=== PATIENT | male | born 1990 | race Two or more races ===

== ENCOUNTER 2021-12-13 01:09 | Emergency (ER) | payer OTHER ==
--- NOTE | 2021-12-13 01:55 | ED Physician Documentation ---
PD HPI ABD PAIN - Stated complaint Stated Complaint: ABD PX - Chief complaint Chief Complaint: Abd Pain - History obtained from History obtained from: Patient - Additional information Additional information: The patient comes to the emergency department with chief complaint of abdominal pain for the last 24 hours. He states he has been feeling up in his periumbilical area and it is a sharp pain like somebody is poking him. He also feels a an odd feeling in his right abdomen and flank which does not feel like a pain but more like a pressure sensation or like "something is there". He states it is worse if he lays on that side and that he almost feels as though his skin is numb. He does not feel that sensation on the left. Patient denies any worsening of the pain with heavy lifting or movement. He denies any dysuria, diarrhea, nausea, or vomiting. He states that he sometimes feels constipated but feels like this is actually been better recently. The patient does note that he is at has a sense of his heart pounding and that this seems worse when the pain comes on. He feels the throbbing sensation in his umbilical area and almost feels like a vibrating sensation. His only medical history is that he has been told previously that he may have some degree of high blood pressure, but he has never really followed up on this. The patient is morbidly obese and states he is going to work on a weight loss plan. No other complaints at this time. Review of Systems Ten Systems: 10 systems reviewed and negative Constitutional: reports: Reviewed and negative Eyes: reports: Reviewed and negative Ears: reports: Reviewed and negative Nose: reports: Reviewed and negative Throat: reports: Reviewed and negative Cardiac: reports: Reviewed and negative Respiratory: reports: Reviewed and negative GI: reports: Abdominal Pain : reports: Reviewed and negative Skin: reports: Reviewed and negative Musculoskeletal: reports: Reviewed and negative Neurologic: reports: Reviewed and negative Psychiatric: reports: Reviewed and negative Endocrine: reports: Reviewed and negative Immunocompromised: reports: Reviewed and negative PD PAST MEDICAL HISTORY - Past Medical History Past Medical History: Yes Cardiovascular: None Respiratory: None Endocrine/Autoimmune: None Psych: None Musculoskeletal: None - Past Surgical History Past Surgical History: No - Present Medications Home Medications: Ambulatory Orders Medication Instructions Recorded Confirmed Metoprolol Tartrate [Lopressor] 25 mg PO BID #60 tablet 12/13/21 - Allergies Allergies/Adverse Reactions: Allergies Allergy/AdvReac Type Severity Reaction Status Date / Time amoxicillin [Amoxicillin] Allergy Unknown Rash Verified 12/13/21 01:17 - Social History Does the pt smoke?: No Smoking Status: Never smoker Does the pt drink ETOH?: No Does the pt have substance abuse?: No - Immunizations Immunizations are current?: Yes - POLST Patient has POLST: No PD ED PE NORMAL - Vitals Vital signs reviewed: Yes - General General: Alert and oriented X 3, No acute distress, Well developed/nourished - HEENT HEENT: Atraumatic, PERRL, EOMI, Moist mucous membranes - Neck Neck: Supple, no meningeal sign - Cardiac Cardiac: RRR, No murmur, Strong equal pulses - Respiratory Respiratory: No respiratory distress, Clear bilaterally - Abdomen Abdomen: Soft, Other (Markedly obese abdomen. Minimal abdominal tenderness, noted only in the left lower quadrant. Palpation of right mid abdomen reproduces the feeling that "something is there". No rebound or guarding. No palpable umbilical hernia.) - Derm Derm: Warm and dry - Extremities Extremities: No deformity - Neuro Neuro: Alert and oriented X 3 - Psych Psych: Normal mood, Normal affect Results - Vitals Vitals: Vital Signs - 24 hr 12/13/21 12/13/21 01:17 02:33 Temperature 36.4 C L 36.4 C L Heart Rate 91 82 Respiratory 17 16 Rate Blood Pressure 193/86 H 160/97 H O2 Saturation 99 100 Oxygen O2 Source Room air - Labs Labs: Laboratory Tests 12/13/21 12/13/21 01:57 01:57 WBC 8.3 RBC 5.28 Hgb 15.5 Hct 45.8 MCV 86.7 MCH 29.4 MCHC 33.8 RDW 12.4 Plt Count 235 MPV 9.4 Neut # (Auto) 4.8 Lymph # (Auto) 2.4 [place] # (Auto) 0.9 Eos # (Auto) 0.2 Baso # (Auto) 0.1 Absolute Nucleated RBC 0.00 Nucleated RBC % 0.0 Sodium 140 Potassium 3.8 Chloride 102 Carbon Dioxide 28 Anion Gap 10.0 BUN 12 Creatinine 1.0 Estimated GFR (MDRD) 87 L Glucose 98 Calcium 9.4 Total Bilirubin 0.7 AST 23 ALT 25 Alkaline Phosphatase 48 Total Protein 7.4 Albumin 4.2 Globulin 3.2 Albumin/Globulin Ratio 1.3 Lipase 44 - Rads (name of study) Ct abd/pelvis Radiology: Final report received, EMP read indepedently, See rad report (Negative) PD MEDICAL DECISION MAKING - ED course Complexity details: reviewed old records, reviewed results, re-evaluated patient, considered differential, d/w patient ED course: The patient was worked up with labs and CT of the abdomen pelvis, All of which were unremarkable. He was found to have quite a high blood pressure in the emergency department of 193/86, And I was concerned that he had most likely been running high and perhaps in this range for an extended period of time. I discussed with the patient that he should be on an antihypertensive, at least for now, until he can see his primary doctor to determine The best long-term plan. I have also emphasized to him that he should definitely continue his plans to work on weight loss, as this is most likely affecting both his abdominal pain and his blood pressure. I am not sure what has caused the sen sation of sharp pain in the periumbilical area and a fullness in his right abdomen. There is no evidence of a hernia, although it is possible that he is developing some soft tissue strain at the umbilicus which will lead to a hernia. I have considered abdominal aortic pathology as a possible cause for the patient's symptoms, but the aorta appears normal on CT. We have discussed the importance of blood pressure control and the usual indications for return. Departure - Departure Disposition: 01 Home, Self Care Clinical Impression: Abdominal pain Qualifiers: Abdominal location: periumbilical Qualified Code(s): R10.33 - Periumbilical pain High blood pressure Qualifiers: Hypertension type: unspecified Qualified Code(s): I10 - Essential (primary) hypertension Condition: Stable Instructions: ED Hypertension New Begin Tx, ED Abdominal Pain Unkn Cause Male Prescriptions: Metoprolol Tartrate [Lopressor] 25 mg PO BID #60 tablet Comments: Your labs and CT scan look good. There is no evidence of a hernia, infection, or bulge in the large artery that runs through your abdomen, the aorta. It is not clear what is causing your symptoms. Most likely, it is coming from the inside of the wall of the abdomen, and could be either a strain of your soft tissue, or a developing tear in your umbilicus which could lead to a hernia. Most likely, your symptoms will resolve on their own, given time. It is not clear why you feel the fullness on the right side of your abdomen, but your abdominal organs and structures look good. You do have a very high blood pressure here in the emergency department, and if you have already been told that you have some high blood pressure readings, it is of concern that you are chronically running high. Over time, this can cause damage to your cardiovascular system as well as your kidneys. It could also explain the sense of heart pounding that you are feeling. A medication has been prescribed for your blood pressure and you should start this in the morning. Please follow-up with your primary care physician to determine whether this is the best long-term plan for you. Please also continue your plans to pursue weight loss, as your weight is probably an issue for both the blood pressure and the abdominal strain. Discharge Date/Time: 12/13/21 02:41
[2021-12-13 02:00] LABS: BASOPHILS # (AUTO) 0.1 10^3/uL (0.0-0.1); BASOPHILS % (AUTO) 0.6 %; EOSINOPHILS # (AUTO) 0.2 10^3/uL (0.0-0.7); EOSINOPHILS % (AUTO) 2.3 %; HCT - HEMATOCRIT 45.8 % (42.0-52.0); HGB - HEMOGLOBIN 15.5 g/dL (14.0-18.0); LYMPHOCYTES # (AUTO) 2.4 10^3/uL (1.5-3.5); LYMPHOCYTES % (AUTO) 28.8 %; MEAN CORPUSCULAR HEMOGLOBIN 29.4 pg (27.0-31.0); MEAN CORPUSCULAR HGB CONC 33.8 g/dL (32.0-36.0); MEAN CORPUSCULAR VOLUME 86.7 fL (80.0-94.0); MEAN PLATELET VOLUME 9.4 fL (7.4-11.4); MONOCYTES # (AUTO) 0.9 10^3/uL (0.0-1.0); MONOCYTES % (AUTO) 10.6 %; NEUTROPHILS # (AUTO) 4.8 10^3/uL (1.5-6.6); NEUTROPHILS % (AUTO) 57.6 %; PLT - PLATELET COUNT 235 10^3/uL (130-450); RED BLOOD COUNT 5.28 10^6/uL (4.70-6.10); RED CELL DISTRIBUTION WIDTH 12.4 % (12.0-15.0); WHITE BLOOD COUNT 8.3 x10^3/uL (4.8-10.8)
[2021-12-13 02:14] LABS: ALBUMIN 4.2 g/dL (3.2-5.5); ALBUMIN/GLOBULIN RATIO 1.3 (1.0-2.2); BILIRUBIN,TOTAL 0.7 mg/dL (0.2-1.0); CALCIUM 9.4 mg/dL (8.5-10.3); POTASSIUM 3.8 mmol/L (3.5-5.0); TOTAL PROTEIN 7.4 g/dL (6.7-8.2)
[2021-12-13 02:34] VITALS: BP 160/97
--- NOTE | 2021-12-13 07:51 | CT Report ---
PROCEDURE: Abdomen/Pelvis WO INDICATIONS: rico-umbilical and R flank pain TECHNIQUE: Noncontrast 5 mm thick sections acquired from the diaphragms to the symphysis. 5 mm coronal and sagi ttal reformats were then performed. For radiation dose reduction, the following was used: automated exposure control, adjustment of mA and/or kV according to patient size. COMPARISON: None. FINDINGS: Image quality: Excellent. ABDOMEN: Lung bases: Lung bases are clear. Heart size is normal. Solid organs: Liver and spleen are normal in size. Gallbladder is unremarkable in CT appearance. P ancreas is normal in contours. No peripancreatic inflammation. No adrenal nodules. Kidneys are norm al in size, without hydronephrosis or nephrolithiasis. Bilateral ureters are normal in course and ca liber. No ureteral stones. No perinephric or periureteral stranding. Peritoneum and bowel: Unenhanced bowel loops demonstrate normal wall thickness and caliber. No free fluid or air. Normal appendix. Nodes and vessels: No retroperitoneal or mesenteric adenopathy by size criteria. Aorta and inferior vena cava are normal in caliber. Miscellaneous: Small fat-containing umbilical hernia without acute inflammation. PELVIS: Genitourinary: Urinary bladder wall thickness is normal. Miscellaneous: No inguinal hernias or adenopathy. Bones: No suspicious bony lesions. No acute vertebral body compression fractures. Moderate degenera tive endplate changes at L4-5 with mild central canal stenosis. IMPRESSION: CT abdomen and pelvis without acute abnormalities. Specifically, no evidence for urolithiasis or obst ructive uropathy. No evidence for recently passed stone. Normal appendix. No significant discrepancy with initial interpretation by overnight radiologist. Reviewed by: Adair Tineo MD on 12/13/2021 7:50 AM PDT Approved by: Adair Tineo MD on 12/13/2021 7:50 AM PDT Station ID: [id number]
== END 2021-12-13 02:41 | disposition home or self-care (01) ==
LOC: ED 01:09
DX: R10.33 Periumbilical pain (principal); I10 Essential (primary) hypertension
CPT/HCPCS: 36415; 80053; 83690; 85025; 99282; 99284

== ENCOUNTER 2023-10-26 15:55 | Outpatient (CLI) | payer OTHER ==
--- NOTE | 2023-10-26 16:23 | Sleep Patient Instructions ---
Sleep Center Visit Summary - Patient Visit Information Reason for Visit: Initial consult for evaluation of sleep disordered breathing and other sleep issues. - Patient Instructions Instructions Attached: Sleep Study Home Monitor, Sleep Study Additional Instructions: You will be completing a sleep study, either an in-lab polysomnography (PSG) or home sleep study (HST). You will follow-up in the sleep care office after the sleep study is completed to hear the results and talk about therapy, if needed. You will be called by our office staff to schedule this appointment, but you may contact us with any questions. - Clinic Information Contact: [facility] [address] [place] [id number] [email or web address] T: [phone]
--- NOTE | 2023-10-26 16:30 | SLEEP CARE CONSULTATION ---
Information from patient questionnaire entered by Nithya Quinn. I have reviewed and concur with the information entered by Nithya Quinn. This document represents the service I personally performed and the decisions made by me, Valerie Hammond ARNP. History of Present Illness Service Date and Time: 10/26/2023 1555 Reason for Visit: New patient Chief Complaint: reports: Unrefreshed sleep, Excessive daytime sleepiness, Fatigue Date of Onset: 1-2YRS MAYBE LONGER Usual bedtime: 12-1AM Time it takes to fall asleep: 20-30MINS Snores at night: Yes Observed to quit breathing while asleep: No Sleeps alone due to snoring: No Number of times waking at night: NOT OFTEN EVERY ONCE IN A WHILE Reasons for waking at night: reports: Gasping for air, Other (FAST HEART RATE). denies: Choking, Snoring Toss, Turn, or Twitch while sleeping: Yes Recalls having dreams: Yes Usually gets out of bed at: [id number]; weekends about an hour later Feels refreshed in the morning: No Morning headache: Yes (5 days a month, resolve in 30 mins after waking up) Sleepy or fatigued during the day: Yes Ever fallen asleep while driving: Yes (drowsy driving mostly; couple "almost incidences") Takes day naps: No Dreams during day naps: No Prior sleep studies: No Additional HPI information: I had the pleasure of seeing ELISABET GOMEZ today regarding the possibility of him having a sleep disorder. His current complaints are unrefreshed sleep, excessive daytime sleepiness and fatigue. He says it seems like "nothing happens" when he sleeps. He wakes up feeling tired and is tired "all the time". He has been told he snores in the past a couple of times. He is currently sleeping alone and does not know if he is currently snoring. He has never been told he stops breathing. He says he has occasionally had dreams where he feels he cannot breathe. He has felt short of air when awakening sometimes, just a feeling of "not being able to breathe". He states he feels he has trouble with concentration during the day, especially when he is tired. He says both of his parents are on machines for sleep apnea. He was told by his primary provider that he is on lower end of scale for insulin resistance and was put on Metformin. 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 Patient is Single and lives in [place]. Have you smoked in the past 12 months: No Alcohol use: No Caffeine use: Yes Caffeine amount and frequency: 12 OZ COFFEE 2-3X DAY Family History Family history of sleep disordered breathing: Yes Family Hx Sleep Apnea: Mother: Sleep apnea - Treated, Father: Sleep apnea - Treated, Sibling: Snoring Allergies and Home Medications Known drug allergies: Yes ( LISTED) Drug allergies reviewed: Yes Home medication list reviewed: Yes (as listed) Allergy and home medication list: Allergies amoxicillin [Amoxicillin] Allergy (Unknown, Verified 10/24/23 14:35) Rash unsure of reaction states "its just always been in my record i guess". Home Medications Medication Instructions Recorded Confirmed Last Taken Type Metoprolol Tartrate [Lopressor] 25 mg PO BID #60 tablet 12/13/21 10/26/23 Unknown Rx Losartan [Cozaar] See Rx Instructions .ROUTE .COMPLEX 10/26/23 10/26/23 Unknown History Multivitamin See Rx Instructions .ROUTE .COMPLEX 10/26/23 10/26/23 Unknown History Pyatt-3/Dha/Epa/Fish Oil [Fish Oil See Rx Instructions .ROUTE .COMPLEX 10/26/23 10/26/23 Unknown History 1,000 mg Softgel] metFORMIN [Glucophage] See Rx Instructions .ROUTE .COMPLEX 10/26/23 10/26/23 Unknown History Review of Systems Weight loss over past 5 years: 10 in last year Cardiovascular: reports: high blood pressure Gastrointestinal: reports: heartburn Neurological: denies: headaches Psychiatric: denies: anxiety, depression Ear/Nose/Throat: reports: nasal congestion, wisdom teeth removed. denies: tonsillectomy Musculoskeletal: reports: neck pain, back pain Immunologic: reports: sneezing, allergies to food or environment Physical Exam Vital signs obtained and entered by: NITHYA Maria MA Blood Pressure: 140/81 (LEFT ARM) Cuff size: long Heart Rate: 82 O2 Saturation: 98 Height: 6 ft 2 in Weight: 313 lb 6.4 oz Body Mass Index: 40.2 BMI Classification: Morbidly Obese Neck circumference: 18.75 Mouth and throat: narrow oropharynx Soft palate: long Hard palate: normal Uvula: normal Uvula visualization: 25% Mallampati Class III Tongue: enlarged in size with teeth rose on lateral edges Tonsils: 1+ Neck: normal w/o lymphadenopathy or thyromegaly Heart: regular rate and rhythm Lungs: clear bilaterally Impression and Plan 1. Suspected Obstructive Sleep Apnea-Hypopnea Syndrome, as suggested by a history of irregular snoring, gasping or choking in sleep, morning headache, unrefreshed sleep, cognitive impairment, and excessive daytime sleepiness. Narrow oropharynx and obesity are common predisposing factors for obstructive sleep apnea-hypopnea syndrome. I recommend proceeding to polysomnography to confirm the diagnosis and to assess severity. If the patient has significant sleep disordered breathing, a manual CPAP titration study will also be performed to find the optimal treatment pressure. I informed the patient of what the sleep studies involve and after some discussion, obtained agreement to proceed. The pathophysiology of obstructive sleep apnea-hypopnea syndrome was discussed with the patient and health risks of cardiovascular and cerebrovascular disease if not treated. Risks of drowsy driving discussed in detail and patient advised to avoid long distance driving and to picker/puller at the first sign of drowsiness. Patient agreed to plan. * Schedule polysomnography +- manual CPAP titration study and return in 1-2 weeks after the study to discuss result and initiate therapy. * Avoid long distance driving or driving when feeling sleepy. * Avoid alcohol, sedative and muscle relaxant around bedtime. * Attempt to lose weight. * Review instructions provided by trained office staff on how to prepare for the sleep study. * Return for follow-up after sleep study completed. Counseling Topics: Weight loss health impact Follow up with Sleep Care in: other (after sleep study) Plan: PSG/HST Visit Type: In Office Time Spent with Patient (minutes): 30 Provider Statement: I spent 100% of the Face to Face Visit with the patient with greater than 50% spent counseling the patient and coordination of care.
[2023-10-26 16:43] VITALS: BP 140/81; O2SAT 98
== END 2023-10-26 15:56 | disposition home or self-care (01) ==
LOC: SC 15:55
PROVIDERS: ATTEND Nurse Practitioner Family
DX: G47.10 Hypersomnia, unspecified (principal); R06.83 Snoring; G47.8 Other sleep disorders; R51.9 Headache, unspecified; R41.89 Other symptoms and signs involving cognitive functions and awareness; E66.01 Morbid (severe) obesity due to excess calories; Z68.41 Body mass index [BMI] 40.0-44.9, adult
CPT/HCPCS: 99203; 99212

== ENCOUNTER 2023-12-14 09:34 | Outpatient (CLI) | payer OTHER ==
--- NOTE | 2023-12-14 09:54 | Sleep Patient Instructions ---
Sleep Center Visit Summary - Patient Visit Information Reason for Visit: Sleep study follow-up - Patient Instructions Instructions Attached: CPAP Additional Instructions: You are being started on CPAP therapy with pressure setting at 4-15 cmH2O. You will need to call the sleep care office to set up your follow up once you have your CPAP machine to check compliance and response to therapy at that time. You may call the office with any concerns about pressure feeling too low or too much for adjustment, if needed. You should contact DME supplier for any questions or concerns about mask or equipment. Please call office to schedule a follow up appointment in the sleep care office one month after obtaining new device. - Clinic Information Contact: [facility] [address] [place] [email or web address] T: [phone]
--- NOTE | 2023-12-14 09:57 | SLEEP CARE CONSULTATION ---
Information from patient questionnaire entered by Nithya Quinn. I have reviewed and concur with the information entered by Nithya Quinn. This document represents the service I personally performed and the decisions made by me, Valerie Hammond ARNP. History of Present Illness Service Date and Time: 12/14/2023 0934 Initial [place] Sleepiness Scale score: 15 (10/11/23) Current [place] Sleepiness Scale score: 12 (12/14/23) Additional HPI information: ELISABET GOMEZ returns for follow up and results of the recently performed home sleep study. The sleep study showed mild obstructive sleep apnea with an average AHI of 5.4 and anne oxygen saturation of 85%. I explained the pathophysiology behind obstructive sleep apnea. We then spent quite a bit of time discussing different treatment options. For mild obstructive sleep apnea, surgery and oral appliance are alternatives to nasal CPAP therapy but in moderate or severe cases, nasal CPAP is the most effective and reliable treatment. Because apnea is primarily in supine position, then positional management therapy could be effective. Methods discussed such as positioning with pillows, using a T-shirt with tennis balls in the back or commercial products that have a pillow format on back to prevent supine sleep. I reviewed the impact of weight changes on sleep apnea and strongly recommended losing weight. After some discussion, the patient opted to go with the nasal CPAP therapy. Nasal autoCPAP set at 4-15 cmH20 will be ordered with rationale explained. A manual titration study will be ordered if unable to find optimal pressure with office adjustments. I explained how CPAP machine works and what to expect when using the machine. Using CPAP every night in order to get used to it was emphasized. Patient advised to put CPAP mask on before getting into bed so as not to fall asleep without CPAP. To assist acclimation to CPAP use, it could also be used for a short time during day while reading or watching TV. The patient was instructed to call the CPAP supplier to discuss any mechanical problem that may occur. If the mask given is uncomfortable or is difficult to keep on through the night even with adjustment, contact the CPAP supplier as many will replace with another mask style if notified before 30 days. If snoring or perceives is not getting enough air or too much air from the machine, notify this office. Patient counseled not drink alcohol less than 4 hours before bedtime as it can increase snoring and apnea. Patient was cautioned about risks of drowsy driving until sleepiness symptoms resolve. Sleep Study - Results Type of Sleep Study: Home sleep study (COMPLETED 12/06/23) Prior sleep studies: No Polysomnography/Home Sleep Study results: Physician Impression: The quality of the study is good. The length of the study is adequate (> 240 minutes). Please also see the tabulated and graphic data. 1. Obstructive Sleep Apnea-Hypopnea (ICD-10 G47.33), mild, with an AHI of 5.4/hr and anne SaO2 of 85%. During the study, the patient had 0 apneas (0 obstructive, 0 central, 0 mixed) and 28 hypopneas. The longest episode lasted 69.5 seconds. The respiratory events occurred almost exclusively during supine sleep (supine AHI was 7.4 and non-supine, 0.65). 2. Hypoxemia (ICD-10 R09.02), mild, with the lowest oxygen saturation of 85 % and 38.8 minutes with SaO2 under 90%. Baseline oxygen saturation was normal (Average oxygen saturation was 93%). Allergies and Home Medications Known drug allergies: Yes (as listed) Drug allergies reviewed: Yes Home medication list reviewed: Yes (no changes) Allergy and home medication list: Allergies amoxicillin [Amoxicillin] Allergy (Unknown, Verified 12/13/23 09:18) Rash unsure of reaction states "its just always been in my record i guess". Review of Systems Review of systems same as previous: Yes (NO CHANGE) Physical Exam Vital signs obtained and entered by: NITHYA Maria MA Blood Pressure: 151/86 (LEFT ARM) Cuff size: long Heart Rate: 88 O2 Saturation: 98 Height: 6 ft 2 in Weight: 316 lb Body Mass Index: 40.6 BMI Classification: Morbidly Obese Impression and Plan 1. Obstructive Sleep Apnea-Hypopnea Syndrome, mild, with lowest oxygen saturation of 85%. Obviously this is the cause of the patients symptoms of unrefreshed sleep, and excessive daytime sleepiness. Positive pressure therapy could benefit hypertension and insulin resistance. As mentioned above, the patient will be started on nasal autoCPAP therapy with pressure set at 4-15 cmH2 O. A manual titration study will be completed if unable to find optimal treatment pressure with office adjustments. Compliance guidelines also reviewed. A copy of compliance guidelines will be given for reference at check out. Because the apnea is more severe supine, I instructed to avoid sleeping supine using pillow positioning until able to start CPAP use. 2. Obesity, unspecified. Currently patients BMI is 40.6. Obesity increases the risk of apnea, CPAP pressure requirements and overall health risks especially cardiovascular and diabetes. Thus patient is advised to lose weight. * Nasal auto CPAP therapy, pressure at 4-15 cm H2O. * Attempt to lose weight. * Avoid alcohol consumption near bedtime. * Avoid supine sleep until using CPAP. * The patient is again cautioned about driving until sleepiness completely resolves. * Return one month after CPAP obtained. I will assess response to therapy and compliance at that time. Counseling Topics: Sleeping position, Weight loss health impact Prescriptions: Auto CPAP Plan: Compliance followup Visit Type: In Office Time Spent with Patient (minutes): 20 Provider Statement: I spent 100% of the Face to Face Visit with the patient with greater than 50% spent counseling the patient and coordination of care.
[2023-12-14 10:01] VITALS: BP 151/86; O2SAT 98
== END 2023-12-14 09:35 | disposition home or self-care (01) ==
LOC: SC 09:34
PROVIDERS: ATTEND Nurse Practitioner Family
DX: G47.33 Obstructive sleep apnea (adult) (pediatric) (principal); E66.01 Morbid (severe) obesity due to excess calories; Z68.41 Body mass index [BMI] 40.0-44.9, adult
CPT/HCPCS: 99212; 99213

== ENCOUNTER 2024-02-01 13:49 | Outpatient (CLI) | payer OTHER ==
--- NOTE | 2024-02-01 14:22 | Sleep Patient Instructions ---
Sleep Center Visit Summary - Patient Visit Information Reason for Visit: First compliance follow-up - Patient Instructions Additional Instructions: You were here for follow up of CPAP therapy. You will be continued on CPAP therapy with pressure at 10-12 cmH2O. Please let us know if the pressure change is uncomfortable and we can make further adjustments of the pressure. You should follow up with sleep care in 1-2 months. You may contact us sooner for any questions or concerns. - Clinic Information Contact: [facility] [address] [place] [email or web address] T: [phone]
--- NOTE | 2024-02-01 14:25 | SLEEP CARE CONSULTATION ---
Information from patient questionnaire entered by Nithya Quinn. I have reviewed and concur with the information entered by Nithya Quinn. This document represents the service I personally performed and the decisions made by , Valerie Hammond ARNP. History of Present Illness Service Date and Time: 02/01/2024 1349 Previous diagnosis: Mild, Obstructive Sleep Apnea-Hypopnea Syndrome AHI: 5.4 (12/06/2023) Reason for follow up: first compliance Equipment type: CPAP (RESMED Airsense 11, S/U012/20/23) Equipment obtained from: Other ([facility]; getting supplies) Mask style: Nasal pillows Mask brand: Resmed (Airfit P10, large cushion) Backup mask available: No (will keep old mask when replaced) Last cushion change: 2 weeks Prior sleep studies: No Type of Sleep Study: Home sleep study (COMPLETED 12/06/23) HPI additional information: ELISABET GOMEZ was diagnosed to have mild, AHI 5.4, obstructive sleep apnea- hypopnea syndrome and returned today for CPAP therapy first compliance follow- up. Sleep Study - Results Type of Sleep Study: Home sleep study (COMPLETED 12/06/23) Prior sleep studies: No CPAP Compliance Data - Data Reviewed with Patient Average duration of nightly device use: 5 HRS 30 MINS Compliance rate %: 83 (12/20/23-01/18/24; days used) Current pressure setting (cmH2O): 4-15 (median 8, avg 10.7, max 12) Average residual AHI: 0.2 Central apnea: 0 Obstructive apnea: 0.1 Hypopnea: 0.1 Average large leak: 0.4 L/min Subjective Missed days of use due to: reports: mask issues, other (taking off mask during night) Patient concerns: reports: mask discomfort, air blowing in eyes. denies: aerophagia, mask leak noise, condensation in mask/hose, nasal congestion, dry mouth, nose, throat, epistaxis Observed to snore while using device: No Current pressure setting perceived as: too low (sometimes when first going to sleep) On therapy, patient: reports: sleeping better, awakening more refreshed, being more awake and alert during the day, more rested overall. denies: drowsiness while driving Initial [place] Sleepiness Scale score: 15 (10/11/23) Current [place] Sleepiness Scale score: 10 (02/01/24) Allergies and Home Medications Known drug allergies: Yes (as listed) Drug allergies reviewed: Yes Home medication list reviewed: Yes (Claritin 10 mg daily) Allergy and home medication list: Allergies amoxicillin [Amoxicillin] Allergy (Unknown, Verified 01/30/24 11:53) Rash unsure of reaction states "its just always been in my record i guess". Review of Systems Review of systems same as previous: Yes (NO CHANGE) Physical Exam Vital signs obtained and entered by: NITHYA Maria MA Blood Pressure: 161/91 (RIGHT ARM) Cuff size: long Heart Rate: 86 O2 Saturation: 97 Height: 6 ft 2 in Weight: 312 lb 6.4 oz Body Mass Index: 40.1 BMI Classification: Morbidly Obese Impression and Plan 1. Obstructive Sleep Apnea-Hypopnea Syndrome, mild, with good treatment compliance and good apnea control. On CPAP therapy, the patient has better sleep quality and is more rested overall. He has significant improvement of his sleep apnea and is noticing improvement when he is able to use it for longer nights. There are some nights where he has taken the mask off unknowingly and those mornings are little rougher. He does like the nasal pillows mask he is using but sometimes it does leak around the nasal pillows. He feels the pressure is a little low at the beginning of the night so I will increase his ramp starting pressure to 5 cmH2O. The patients pressure will be changed to autoCPAP 10-12 cmH20 to reflect pressure being used. Patient advised to contact me if pressure change is uncomfortable so that it can be adjusted. Goals for apnea control discussed. Patient's apnea severity and rationale for treatment to reduce apnea, improve sleep quality and reduce cardiovascular and cerebrovascular events was reviewed. I also reviewed the benefit of consistent device use of CPAP for hypertension, insulin resistance. 2. Obesity, unspecified. Currently patients BMI is 40.1. Obesity increases the risk of apnea, CPAP pressure requirements and overall health risks especially cardiovascular and diabetes. Thus patient is advised to lose weight. * Change auto CPAP pressure to 10-12 cmH2O * Notify me if snoring with mask or feeling that the pressure is too much or too little * Attempt to lose weight * Call this office if any problems using CPAP * Return for follow up in 1-2 months, or sooner if concerns arise Adjust device pressure to (cmH2O): 10-12 Counseling Topics: Spare mask, Weight loss health impact Follow up with Sleep Care in: 1-2 months Visit Type: In Office Time Spent with Patient (minutes): 20 Provider Statement: I spent 100% of the Face to Face Visit with the patient with greater than 50% spent counseling the patient and coordination of care.
[2024-02-01 14:27] VITALS: BP 161/91; O2SAT 97
== END 2024-02-01 13:50 | disposition home or self-care (01) ==
LOC: SC 13:49
PROVIDERS: ATTEND Nurse Practitioner Family
DX: G47.33 Obstructive sleep apnea (adult) (pediatric) (principal); E66.01 Morbid (severe) obesity due to excess calories; Z68.41 Body mass index [BMI] 40.0-44.9, adult
CPT/HCPCS: 99212; 99213

== ENCOUNTER 2024-03-28 13:45 | Outpatient (CLI) | payer OTHER ==
--- NOTE | 2024-03-28 14:11 | Sleep Patient Instructions ---
Sleep Center Visit Summary - Patient Visit Information Reason for Visit: 2-month follow-up for Pap therapy - Patient Instructions Additional Instructions: You were here for follow up of CPAP therapy. You will be continued on CPAP therapy with pressure at 10-12 cmH2O. You should follow up with sleep care in 3 months. You may contact us sooner for any questions or concerns. - Clinic Information Contact: [facility] [address] [place] [id number] [email or web address] T: [phone]
--- NOTE | 2024-03-28 14:17 | SLEEP CARE CONSULTATION ---
Information from patient questionnaire entered by Nithya Quinn. I have reviewed and concur with the information entered by Nithya Quinn. This document represents the service I personally performed and the decisions made by , Valerie Hammond ARNP. History of Present Illness Service Date and Time: 03/28/2024 1345 Previous diagnosis: Mild, Obstructive Sleep Apnea-Hypopnea Syndrome AHI: 5.4 (12/06/2023) Reason for follow up: other (2 MONTH F/U ) Equipment type: CPAP (RESMED Airsense 11, S/U 12/20/23) Equipment obtained from: Other ([facility]; getting supplies) Mask style: Nasal pillows Mask brand: Resmed (AirFit B49--vsuvq to try a Liana Full) Backup mask available: No Last cushion change: 1-2 weeks Prior sleep studies: No Type of Sleep Study: Home sleep study (COMPLETED 12/06/23) HPI additional information: ELISABET GOMEZ was diagnosed to have mild, AHI 5.4, obstructive sleep apnea- hypopnea syndrome and returned today for CPAP therapy 2 month follow-up. Sleep Study - Results Type of Sleep Study: Home sleep study (COMPLETED 12/06/23) Prior sleep studies: No CPAP Compliance Data - Data Reviewed with Patient Average duration of nightly device use: 6 HRS 25 MINS Compliance rate %: 98 (01/26/24-03/25/24; 59/60 days used) Current pressure setting (cmH2O): 10-12 Average residual AHI: 0.3 Central apnea: 0 Obstructive apnea: 0.2 Hypopnea: 0.1 Average large leak: 0 L/min Subjective Missed days of use due to: reports: mask issues, other (FORGOT) Patient concerns: reports: mask discomfort, air blowing in eyes, nasal congestion (has allergies, happens during day too). denies: aerophagia, mask leak noise, condensation in mask/hose, dry mouth, nose, throat, epistaxis Observed to snore while using device: No Current pressure setting perceived as: comfortable On therapy, patient: reports: sleeping better, awakening more refreshed, being more awake and alert during the day, more rested overall. denies: drowsiness while driving Initial [place] Sleepiness Scale score: 15 (10/11/23) Current [place] Sleepiness Scale score: 10 (03/28/24) Allergies and Home Medications Known drug allergies: Yes (as listed) Drug allergies reviewed: Yes Home medication list reviewed: Yes (no changes) Allergy and home medication list: Allergies amoxicillin [Amoxicillin] Allergy (Unknown, Verified 03/28/24 13:50) Rash unsure of reaction states "its just always been in my record i guess". Review of Systems Review of systems same as previous: Yes (no changes) Physical Exam Vital signs obtained and entered by: NITHYA Maria MA Blood Pressure: 150/84 (RIGHT ARM) Cuff size: long Heart Rate: 84 O2 Saturation: 98 Height: 6 ft 2 in Weight: 313 lb Body Mass Index: 40.1 BMI Classification: Morbidly Obese Impression and Plan 1. Obstructive Sleep Apnea-Hypopnea Syndrome, mild, with good treatment compliance and good apnea control. On CPAP therapy, the patient has better sleep quality and is more rested overall. He has significant improvement of his sleep apnea and is satisfied with current CPAP therapy. He does have difficulty with his nasal pillows sometimes adjusting during the night and he has difficulty breathing through his nose. He is going to try Liana Full face mask to see if this will help reduce mass discomfort. He has ongoing allergy issues with nasal congestion which makes it difficult for him to use the nasal pillows mask. Patient's apnea severity and rationale for treatment to reduce apnea, improve sleep quality and reduce cardiovascular and cerebrovascular events was reviewed. I also reviewed the benefit of consistent device use of CPAP for hypertension, insulin resistance. 2. Obesity, unspecified. Currently patients BMI is 40.1. Obesity increases the risk of apnea, CPAP pressure requirements and overall health risks especially cardiovascular and diabetes. Thus patient is advised to lose weight. * Continue auto CPAP pressure at 10-12 cmH2O * Notify me if snoring with mask or feeling that the pressure is too much or too little * Attempt to lose weight * Call this office if any problems using CPAP * Return for follow up in 3 months, or sooner if concerns arise Counseling Topics: Spare mask, Weight loss health impact Follow up with Sleep Care in: 3 months Visit Type: In Office Time Spent with Patient (minutes): 16 Provider Statement: I spent 100% of the Face to Face Visit with the patient with greater than 50% spent counseling the patient and coordination of care.
[2024-03-28 14:22] VITALS: BP 150/84; O2SAT 98
== END 2024-03-28 13:46 | disposition home or self-care (01) ==
LOC: SC 13:45
PROVIDERS: ATTEND Nurse Practitioner Family
DX: G47.33 Obstructive sleep apnea (adult) (pediatric) (principal); E66.01 Morbid (severe) obesity due to excess calories; Z68.41 Body mass index [BMI] 40.0-44.9, adult
CPT/HCPCS: 99212